=== PATIENT | female | born 1940 | race Caucasian/White ===

== ENCOUNTER 2018-07-07 05:17 | Inpatient (IN) ==
[2018-07-07] MEDS ORDERED: Metoprolol Tartrate 25 MG Tablet PO ONE (05:34)
[2018-07-07] MEDS ORDERED: Chlorhexidine Gluconate 2% 1 Pack (2 Cloths) TOPICAL ONE (05:34)
[2018-07-07] MEDS ORDERED: Sodium Chlor 0.9% Inj 500 ML IV.SIG SCH (06:00)
[2018-07-07] MEDS ORDERED: ceFAZolin 2 GM Premix Inj 2 GM/50 ML PIGGYBACK IV.SIG SCH (06:00)
[2018-07-07] MEDS ORDERED: Bupivacaine Liposomal PF 1.3% Inj 20 ML Vial ONE (06:13)
[2018-07-07] MEDS ORDERED: Propofol Inj 500 MG/50 ML Vial ONE (06:18)
[2018-07-07] MEDS ORDERED: fentaNYL Citrate Inj 100 MCG/2 ML Ampul ONE ×2 (06:18→06:35)
[2018-07-07] MEDS ORDERED: Sodium Chlor 0.9% Inj 0 ML ONE (06:18)
[2018-07-07] MEDS ORDERED: Famotidine PF Inj 20 MG/2 ML Vial ONE (06:19)
[2018-07-07] MEDS ORDERED: Bupivacaine/Dextrose 0.75% Inj 2 ML Ampul ONE (06:19)
[2018-07-07] MEDS ORDERED: Dexmedetomidine Inj 200 MCG/2 ML Vial ONE (06:19)
[2018-07-07] MEDS ORDERED: Ketamine Inj 50 MG/5 ML Syringe IV.PUSH ONE (06:35)
[2018-07-07] MEDS ORDERED: Lidocaine PF 1% Inj 5 ML Syringe OTHER ONE (06:41)
[2018-07-07] MEDS ORDERED: Esmolol Bolus Inj 100 MG/10 ML Vial IV.PUSH ONE (06:41)
[2018-07-07] MEDS ORDERED: Phenylephrine/NS 1000 MCG/10ML Syringe IV.PUSH ONE (06:41)
[2018-07-07] MEDS ORDERED: Aluminum/Magnesium/Simethacone Susp 30 ML UDC PO PRN (06:51)
[2018-07-07] MEDS ORDERED: Post-op Orders (for Pharmacy) OTHER STA (06:51)
[2018-07-07] MEDS ORDERED: Morphine Inj 4 MG/ML Vial IV.PUSH PRN (06:51)
[2018-07-07] MEDS ORDERED: Tranexamic Acid Inj 0 MG in Sodium Chlor 0.9% Inj 100 ML IV.SIG ONE (06:51)
[2018-07-07] MEDS ORDERED: Bisacodyl 10 MG Supp RECTAL PRN (06:51)
[2018-07-07] MEDS ORDERED: SODIUM CHLOR 0.9% IV.SIG SCH ×2 (07:00→10:00)
[2018-07-07] MEDS ORDERED: Sodium Chlor 0.9% Inj 80 ML, Bupivacaine Liposo PF 1.3% Inj 20 ML P-ARTICULR SCH ×2 (07:00)
[2018-07-07] MEDS ORDERED: TRANEXAMIC ACID IV.SIG SCH ×2 (07:00→10:00)
[2018-07-07] MEDS ORDERED: Sugammadex Inj 200 MG/2 ML Vial IV.PUSH ONE (08:52)
--- NOTE | 2018-07-07 09:09 | P.DCO ---
- Physical Therapy Physical Therapy: Gait training Knee: Total knee, Protocol: Right, Gait training, Full weight bearing Right Lower Extremity Weight Bearing: Weight bearing as tolerated Right Lower Extremity Range of Motion: Active ROM (Active, active assisted, passive range of motion. Range of motion goal is 0 degrees extension to 135 degrees of flexion. Range of motion in the operating room was 0 degrees extension to 145 degrees of flexion.) - Nursing Nursing: Dressing changes (To begin postop day 7.) Dressing changes: Daily dressing change (To begin postop day 7.), Coverderm/ Primapore (Do not remove Dermabond Prineo (the tape that is on the wound).) - Certification Need for Home Health services: I have seen patient Anastasia Salmon on 07/07/18. My clinical findings support the need for the requested home health care services because: Need for Home Health Services: Limited ability to care for self, High risk of falls Homebound Certification: I certify that my clinical findings support that this patient is homebound because: Homebound Certification: Post-op weakness, Unsteady gait/balance, Unsafe to leave home unassisted
--- NOTE | 2018-07-07 09:16 | P.OP ---
- Preoperative Diagnosis (1) Primary osteoarthritis of right knee - Postoperative Diagnosis (1) Primary osteoarthritis of right knee Date of procedure: 07/07/18 Procedure: Right total knee arthroplasty using Murali Triathlon prosthesis (uncemented). 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 We will she has not responded to conservative measures including G6, nonsteroidal anti-inflammatory agents, activity modification, exercises, physical therapy and ambulatory aids. Her ambulation tolerance is 2 blocks because of the pain. She has difficulty standing from a seated position. She has medial pain. She has stiffness. Physical findings showed genuine varum with medial laxity and tenderness in the medial compartment. There are palpable osteophytes. X-rays showed an MRI showed advanced for arthritis in the right knee with loss of articular cartilage to [id number], exposed subchondral bone, subchondral sclerosis and osteophytes. Operative findings: There was significant loss of articular cartilage in the medial compartment with osteophytes and subchondral sclerosis. The patellofemoral compartment had degenerative change as well to a significant degree. The bone quality was good. The prosthesis used was a Argyle Triathlon prosthesis. The femur was a size 4, cruciate retaining, uncemented. The tibial baseplate was a size 4 Tritanium with a 9 mm, cruciate retaining, X3 polyethylene spacer. The patella was a size 32 mm asymmetric Tritanium backed. The patient was brought to the clean-air operating suite after administration of a regional anesthetic by adductor canal block. A spinal anesthetic was administered. The position was supine with a small bolster under the hip on the operative side. A pneumatic tourniquet was applied to the upper thigh. The lower extremity was prepped with alcohol, Hibiclens and ChloraPrep and draped in the usual manner with the knee draped free. An appropriate timeout procedure was carried out. An incision was made from about 3 fingerbreadths above the superior medial pole of patella down the tibial tubercle on the medial side. The incision was deepened through the subcutaneous tissue to the retinacular structures which were exposed medially and laterally. A medial retinacular incision was made from the superior medial pole of patella down the tibial tubercle and up into the quadriceps tendon, splitting it longitudinally in the medial one third. The patella was reflected. The infrapatellar fat pad was debulked. The anterior cruciate ligament was excised. Medial and lateral meniscectomies were initiated. Fenestrations were made in the distal femur and proximal tibia for intramedullary referencing guides. The distal femoral cutting guide and jig were assembled for a 5, 8 mm cut. When this was fit into position,the cutting block was stabilized with pins. The jig was removed. The distal femoral cut was completed with the oscillating saw. The sizing guide was positioned in place along Whitesides line and the epicondylar axis and stabilized with pins. The femoral size was determined as noted above. The 4-in-1 cutting block was positioned in place. Anterior and posterior cuts were made followed by posterior and anterior chamfer cuts taking care to prevent injury to ligamentous structures. Osteophytes were trimmed from the distal femur. A bone plug was placed into the fenestration of the distal femur. The proximal tibia was exposed. The medial and lateral meniscectomies were completed. The proximal tibial cutting guide was positioned in place and stabilized with a pin for rotation. The depth of cut was verified with a stylus off the high side. The cutting block was stabilized with pins. The jig was removed. The depth of cut was verified and adjusted appropriately with the use of the spacer block. The proximal tibial cut was made with the oscillating saw taking care to prevent injury to neurovascular and ligamentous structures. Proximal tibial bone was removed. Local anesthetic was administered with Exparel in the posterior capsule. The tibial baseplate trial was positioned in place. After verifying the appropriate size, the base plate trial was positioned in place along with its spacer. The femoral component was impacted into place. The alignment was checked. The tibial baseplate was pinned in place on the tibia. Attention was directed to the patella. The patella drill guide was positioned in place for the appropriate sized patella. Patellar drilling was then carried out. The trial patella was positioned in place. The knee was taken through a range of motion which was easily 0 extension to 140 degrees. The patella trial was removed. The femoral drill holes were made. The femoral trials were removed. The tibial spacer was removed. A bone plug was placed into the proximal tibia. The tibial punch was impacted through the proximal tibial punch guide. This was all removed followed by placement of the tibial drill guide. The tibial drill holes were made. The guide was removed. The cut ends of bone were cleaned with pulse lavage. The tibial baseplate was impacted into place and seated appropriately. The spacer was inserted. The the femoral component was impacted into place and seated appropriately. The patella component was seated with the patellar vice and tightened appropriately. The knee was taken through a range of motion which was comparable to the previous range of motion with excellent stability in flexion and extension and appropriate patellofemoral tracking. The remainder of the Exparel was injected throughout the knee as a local anesthetic. Drains were brought out the superior lateral aspect of the suprapatellar pouch. Wound closure commenced using 0 Vicryl interrupted [id number] sutures for the capsular and fascial structures, 2-0 Vicryl interrupted simple sutures with buried knots for the subcutaneous tissues and 4-0 Monocryl, continuous subcuticular closure for the skin. The wound was dressed with Dermabond Prineo followed by an Optifoam dressing. Sterile soft roll with a cooling pad and Pepe bandage from the base of the toes to mid thigh were applied. Patient was transferred from the operating room to the recovery room in satisfactory condition having tolerated procedure well. Counts were correct. Specimens: None. Estimated blood loss: 150 milliliters.
[2018-07-07] MEDS: Senna/Docusate Sodium 8.6/50 MG Tablet PO SCH ×2 (10:02→21:48)
--- NOTE | 2018-07-07 10:19 | XR ---
EXAM DATE: 07/07/2018 6:49 AM EDT AGE/SEX: 78 years / Female INDICATIONS: Post op right total knee replacement. CLINICAL DATA: This is the patient's initial encounter. Patient reports that signs and symptoms have been present for 1 day and indicates a pain score of Nonresponsive. MEDICAL/SURGICAL HISTORY: Non-responsive. Non-responsive. COMPARISON: POI, CT KNEE W/O CONTRAST, RIGHT, 02/11/2018. . FINDINGS: A total knee arthroplasty is noted. The tibial and femoral components appear well seated. There is a small amount of subcutaneous air around the knee. No fracture or dislocation. Surgical drain is noted anteriorly. CONCLUSION: Postoperative changes. Electronically signed by: Dileep Zarco MD 07/07/2018 10:17 AM EDT
[2018-07-07] MEDS: Ketorolac Inj 30 MG/ML (IVP) Vial IV.PUSH SCH ×2 (10:46→16:15)
--- NOTE | 2018-07-07 13:46 | P.CON ---
History of Present Illness Requesting Physician: Mickey Correa Reason for Consult: Medical management and postop care Primary Care Provider: West Willingham MD Chief Complaint: Right knee pain History of Present Illness: This is a 78-year-old female with a history of seasonal allergies, hyperglycemia and right knee pain from osteoarthritis. She underwent elective arthroplasty today by Dr. NURY Correa who requested consultation to evaluate and manage multiple medical conditions. Patient at this time has no complaints she received nerve block. States she was having right knee pain affecting her activities of daily living. Preop eval showed she had hyperglycemia 170 and microscopic hematuria RBC of 8. No UTI symptoms. Review of Systems All other systems reviewed negative except as stated in HPI PMFSH - History History Provided By: Patient - Medical History Medical History: Medical History (Last Reviewed 07/07/18 @ 16:00 by West Osman MD) Arthritis Hx of cyst of breast Hx of sinusitis Irregular heart beats - Surgical History Surgical History: Surgical History (Last Reviewed 07/07/18 @ 16:00 by West Osman MD) H/O colonoscopy History of esophagogastroduodenoscopy (EGD) Hx of arthroscopy of right knee Hx of cataract surgery - Family History Family History: Family History (Last Updated 07/07/18 @ 16:00 by West Osman MD) Other Family history of diabetes mellitus - Social History I have reviewed the patient's Social History: Yes - Tobacco History Second Hand Smoke Exposure: No Tobacco Use In Past 30 Days: No Smoking Status: Never smoker - Alcohol History How Often Do You Have a Drink Containing Alcohol: Never - Substance Use History Substance History: No History of Abuse - Travel History Recent Travel in the [place] Within the Last 8 Weeks: Yes Recent Travel Out of the Country Within the Last 8 Weeks: No Medications and Allergies Active Medications: Active Medications Acetaminophen (Tylenol) 650 mg PO Q6H PRN PRN Reason: Pain Less Than 3 On Scale Hydrocodone Bitart/Acetaminophen ([place] 7.5/325) 1 tab PO Q4H PRN PRN Reason: PAIN SCALE 4 TO 6 MODERATE Hydrocodone Bitart/Acetaminophen ([place] 7.5/325) 2 tab PO Q6H PRN PRN Reason: PAIN SCALE 7 TO 10 SEVERE Al Hydrox/Mg Hydrox/Simethicone (Mag-Al Plus Susp Liq) 30 ml PO Q6H PRN PRN Reason: INDIGESTION Al Hydroxide/Mg Hydroxide (Milk Of Efrain Liq) 30 ml PO BID PRN PRN Reason: Mild Constipation Aspirin (Aspirin Chew) 81 mg PO BID [facility] Last Admin: 07/07/18 10:02 Dose: Not Given Bisacodyl (Dulcolax Supp) 10 mg RECTAL DAILY PRN PRN Reason: SEVERE CONSITIPATION Calcium/Vitamin D (Oscal With D 250/125 Mg) 2 tab PO DAILY [facility] Sodium Chloride 80 ml/ (Bupivacaine Liposome 20 ml) 0 ml P-ARTICULR ONCE [facility] Stop: 07/07/18 14:00 Last Admin: 07/07/18 07:30 Dose: 100 bag Diphenhydramine HCl (Benadryl) 25 mg PO Q6H PRN PRN Reason: ITCHING Estradiol (Estrace 0.01% Vag Cream) 0 appful VAGINAL Q7D [facility] Fluticasone Propionate (Flonase Nasal [place]) 1 spray EACH NARE DAILY [facility] Lactated Ringer's (Lr 1000 Ml Inj) 1,000 mls @ 30 mls/hr IV.SIG .Q24H [facility] Stop: 07/08/18 05:44 Last Admin: 07/07/18 05:52 Dose: 30 mls/hr Sodium Chloride (Ns Inj) 500 mls @ 30 mls/hr IV.SIG .Q10H [facility] Cefazolin Sodium/Dextrose (Ancef 2 Gm Premix Inj) 2 gm in 50 mls @ 100 mls/hr IV.SIG INDUCTION BRAZER [facility] Stop: 07/11/18 05:59 Last Infusion: 07/07/18 07:31 Dose: Infused Tranexamic Acid 655 mg/ Sodium (Chloride) 106.55 mls @ 200 mls/hr IV.SIG ONCE [facility] Stop: 07/07/18 14:00 Last Infusion: 07/07/18 07:31 Dose: Infused Tranexamic Acid 655 mg/ Sodium (Chloride) 106.55 mls @ 200 mls/hr IV.SIG ONCE [facility] Stop: 07/07/18 16:00 Last Admin: 07/07/18 10:03 Dose: 200 mls/hr Cefazolin Sodium 1,000 mg/ (Sodium Chloride) 100 mls @ 200 mls/hr IV.SIG Q6H [facility] Stop: 07/08/18 01:29 Lactated Ringer's (Lr 1000 Ml Inj) 1,000 mls @ 80 mls/hr IV.CONT .[id number] [facility] Last Admin: 07/07/18 10:02 Dose: 80 mls/hr Ketorolac Tromethamine (Toradol Inj) 15 mg IV.PUSH Q6H [facility] Stop: 07/09/18 04:01 Last Admin: 07/07/18 10:46 Dose: 15 mg Lactulose (Lactulose Liq) 30 ml PO DAILY PRN PRN Reason: SEVERE CONSITIPATION Miscellaneous Information (Mis Nursing Information) 0 each OTHER UNSCH PRN PRN Reason: SEE LABEL COMMENTS Stop: 07/08/18 09:23 Morphine Sulfate (Morphine Inj) 2 mg IV.PUSH Q3H PRN PRN Reason: BREAKTHROUGH PAIN Ondansetron HCl (Zofran Odt) 4 mg PO Q6H PRN PRN Reason: NAUSEA OR VOMITING Patient Own Medication: Restasis (Cyclosporine) 0.05 % Ophthalmic Emulsion 0 each EACH EYE Q12H [facility] Senna/Docusate Sodium (Stacie-Colace) 1 tab PO BID [facility] Last Admin: 07/07/18 10:02 Dose: Not Given Sennosides (Senokot) 17.2 mg PO BID PRN PRN Reason: Moderate Constipation Sodium Chloride (Ns Flush) 2 ml IV.FLUSH BID [facility] Sodium Chloride (Ns Flush) 2 ml IV.FLUSH PRN PRN PRN Reason: FLUSH AFTER USING IV ACCESS Zolpidem Tartrate (Ambien) 5 mg PO HS PRN PRN Reason: INSOMNIA Allergies Allergy/AdvReac Type Severity Reaction Status Date / Time clavulanic acid AdvReac Irritation Verified 06/18/18 14:39 [From Augmentin] metformin AdvReac Nausea Verified 06/18/18 14:39 Home Medications Medication Instructions Recorded Confirmed Type calcium carbonate-vitamin D3 1 tab PO DAILY 06/18/18 07/07/18 History [Calcium with Vitamin D] cyclosporine [Restasis] 1 drp OPHTHALMIC (EYE) Q12H 06/18/18 07/07/18 History fluticasone [Flonase Allergy 1 spray INTRANASAL DAILY 06/18/18 07/07/18 History Relief] meloxicam [Mobic] 15 mg PO DAILY 06/18/18 07/07/18 History estradiol 1 g VAGINAL QWEEK 07/07/18 07/07/18 History Physical Exam Vital signs: Vital Signs 07/07/18 05:56 07/07/18 09:24 07/07/18 09:45 Temperature 98.1 F 97.4 F L Pulse Rate 86 96 H 96 H Respiratory Rate 18 20 17 Blood Pressure 144/71 H 149/70 H 134/62 Pulse Oximetry 99 100 99 07/07/18 10:00 07/07/18 10:15 07/07/18 10:30 Temperature Pulse Rate 95 H 90 92 H Respiratory Rate 17 14 16 Blood Pressure 143/68 H 160/71 H 154/69 H Pulse Oximetry 100 98 99 07/07/18 11:00 07/07/18 12:00 Temperature 97.6 F 97.6 F Pulse Rate 88 89 Respiratory Rate 18 18 Blood Pressure 142/64 H 142/66 H Pulse Oximetry 99 93 L Intake & Output 07/06/18 07/07/18 07/07/18 18:59 06:59 18:59 Intake Total 3799.55 / 3799.55 Output Total 1160 / 1160 Balance 2639.55 / 2639.55 Weight 65.5 kg Intake: IV 156.55 / 156.55 Cyklokapron Inj 655 MG In NS 106.55 / 106.55 Inj 100 ML @ 200 mls/hr IV.SIG ONCE [facility] Rx#:[id number] Ancef 2 GM Premix Inj 2 gm In 50 / 50 50 ml @ 100 mls/hr IV.SIG INDUCTION BRAZER [facility] Rx#:[id number] Anesthesia Amount 3643 / 3643 Output: Estimated Blood Loss 150 / 150 Urine Amount (Catheter) 1000 / 1000 Straight 1000 / 1000 Wound Drainage # 1 Right Knee Hemovac Other: Weight On Admission 65.5 kg Narrative: GENERAL: Well-developed, well-nourished in no distress SKIN: Warm and dry. HEAD: Atraumatic. Normocephalic. EYES: Pupils equal and round. No scleral icterus. No injection or drainage. ENT: No nasal bleeding or discharge. Mucous membranes pink and moist. NECK: Trachea midline. No JVD. CARDIOVASCULAR: Regular rate and rhythm. RESPIRATORY: No accessory muscle use. Clear to auscultation. Breath sounds equal bilaterally. GASTROINTESTINAL: Abdomen soft, non-tender, nondistended. MUSCULOSKELETAL: Right lower extremity with dry thick bandage with Hemovac in place NEUROLOGICAL: Awake and alert. No obvious cranial nerve deficits. Motor grossly within normal limits. Five out of 5 muscle strength in the arms and legs. Normal speech. PSYCHIATRIC: Appropriate mood and affect; insight and judgment normal. - Urinary Catheter Management Straight Cath placed during this visit: yes, but has since been removed by the nurse Reason for continuing: Not indwelling catheter Insertion date: 07/07/18 Removal date: 07/07/18 Removal time: 10:55 Assessment and Plan - Plan This is a 78-year-old female with a history of seasonal allergies, hyperglycemia and right knee pain from osteoarthritis. She underwent elective arthroplasty by Dr. NURY Correa who requested consultation to evaluate and manage multiple medical conditions. Right knee osteoarthritis status post arthroplasty. Stable continue postoperative care with physical therapy, wound care, DVT prophylaxis with aspirin and SCD and pain management with Lortab. Counseled regarding narcotics. Incentive spirometry. Hyperglycemia 170. Obtain fasting glucose in the Microscopic hematuria RBC of 8. No UTI symptoms. Outpatient follow-up Discharge Planning: Per orthopedic surgery
[2018-07-07] MEDS ORDERED: Zolpidem Tartrate 5 MG Tablet PO PRN (21:00)
[2018-07-07] MEDS ORDERED: RESTASIS 0.05% EACH EYE SCH (21:00)
[2018-07-08 05:54] LABS: Hematocrit 29.5 % (35.0-46.0); Hemoglobin 9.9 gm/dL (11.6-15.3)
[2018-07-08 06:27] LABS: Calcium 7.5 mg/dL (8.5-10.1); Carbon Dioxide 26.1 meq/L (21.0-32.0); Magnesium 2.1 mg/dL (1.5-2.5); Potassium 4.1 meq/L (3.5-5.1)
--- NOTE | 2018-07-08 07:36 | P.PNOP ---
Subjective Interval history: Postop day #1 She is doing well. She does have some pain but not much. She indicates that she had some vertigo when she was walking; but this has improved. Physical therapy reports that the ambulation distance was 38 feet. The range of motion was 0 degrees of extension to 75 degrees of flexion. Physical Exam Vital signs: Vital Signs 07/07/18 09:24 07/07/18 09:45 07/07/18 10:00 Temperature 97.4 F L Pulse Rate 96 H 96 H 95 H Respiratory Rate 20 17 17 Blood Pressure 149/70 H 134/62 143/68 H Pulse Oximetry 100 99 100 07/07/18 10:15 07/07/18 10:30 07/07/18 11:00 Temperature 97.6 F Pulse Rate 90 92 H 88 Respiratory Rate 14 16 18 Blood Pressure 160/71 H 154/69 H 142/64 H Pulse Oximetry 98 99 99 07/07/18 12:00 07/07/18 15:58 07/07/18 16:00 Temperature 97.6 F 97.7 F Pulse Rate 89 86 Respiratory Rate 18 18 Blood Pressure 142/66 H 142/62 H Pulse Oximetry 93 L 95 95 07/07/18 20:00 07/08/18 00:00 07/08/18 04:00 Temperature 98.0 F 98.2 F 98.4 F Pulse Rate 94 H 97 H 86 Respiratory Rate 17 18 17 Blood Pressure 122/51 L 125/60 114/56 L Pulse Oximetry 96 94 L 94 L Intake & Output 07/07/18 07/08/18 07/08/18 18:59 06:59 18:59 Intake Total 4859.55 / 4859.55 1500 / 1500 Output Total 1340 / 1340 120 / 120 Balance 3519.55 / 3519.55 1500 / 1500 -120 / -120 Weight 76.3 kg Intake: IV 256.55 / 256.55 1100 / 1100 LR 1000 mL Inj 1,000 ML @ 80 1000 / 1000 mls/hr IV.CONT .[id number] [facility] Rx# :[id number] Cyklokapron Inj 655 MG In NS 106.55 / 106.55 Inj 100 ML @ 200 mls/hr IV.SIG ONCE [facility] Rx#:[id number] Ancef 2 GM Premix Inj 2 gm In 50 / 50 50 ml @ 100 mls/hr IV.SIG CAT SKINNER [facility] Rx#:[id number] Ancef Inj 1,000 MG In NS Inj 100 / 100 100 / 100 100 ML @ 200 mls/hr IV.SIG Q6H [facility] Rx#:[id number] Oral 960 / 960 400 / 400 Anesthesia Amount 3643 / 3643 Output: Estimated Blood Loss 150 / 150 Urine Amount (Catheter) 1000 / 1000 Straight 1000 / 1000 Wound Drainage 190 / 190 120 / 120 # 1 Right Knee Hemovac 190 / 190 120 / 120 Other: # Voids 3 3 # Bowel Movements 0 Narrative: She is resting comfortably, supine in bed. The dressing is dry and intact. Her neurovascular status is intact. - Urinary Catheter Management Straight Cath placed during this visit: yes, but has since been removed by the nurse Reason for continuing: Not indwelling catheter Insertion date: 07/07/18 Removal date: 07/07/18 Removal time: 10:55 Results - Labs CBC & Chem 7: 07/08/18 05:30 07/08/18 05:30 Laboratory Results - last 24 hr 07/08/18 07/08/18 05:30 05:30 Hgb 9.9 L Hct 29.5 L Sodium 144 Potassium 4.1 Chloride 111 H Carbon Dioxide 26.1 Anion Gap 7 BUN 14 Creatinine 0.69 Estimated GFR 82 L Random Glucose 106 Calcium 7.5 L Magnesium 2.1 - Imaging Impressions Knee X-Ray 07/07/18 06:49 CONCLUSION: Postoperative changes. - Procedures Right total knee arthroplasty using Murali Triathlon prosthesis (uncemented) on 07/07/2018 Assessment and Plan - Ortho Post Op Day # 1 - Problem List (1) Status post total right knee replacement not using cement Code(s): Z96.651 - Presence of right artificial knee joint Status: Acute Plan: Continue postop care and PT. - Assessment and Plan Condition: Good. Orthopedically stable. DVT prophylaxis: TEDs, aspirin, sequentials. Discharge plans: Home with home health care. An appointment was scheduled through the office. Prescriptions: [place] 7.5/325; Patient is having significant pain caused by a right total knee which will last more than 3 days. Trial of Tylenol has not helped. I believe that it is medically necessary to treat patients pain because it is affecting patients ability to participate in postoperative rehabilitation and perform activities of daily living in a comfortable and efficient manner.
--- NOTE | 2018-07-08 08:04 | P.DS ---
Date of admission: 07/07/18 05:17 Primary care physician: West Willingham MD Attending physician on discharge: Mickey Correa Anticipated date of discharge: 07/09/18 Brief History from admission: This 78-year-old woman has had long-standing right knee pain nonresponsive to conservative measures including anti-inflammatory agents, analgesics, activity modification and ambulatory aids. This interfered with her activities of daily living and her ambulation which was limited. Physical findings showed genu varum with medial laxity, crepitation, osteophytes and tenderness. X-rays showed loss of articular cartilage in the medial compartment to [id number], subchondral sclerosis, tricompartmental osteophytes. DS: Diagnosis - Discharge Diagnosis (1) Status post total right knee replacement not using cement Status: Acute Diagnosis: Principal (2) Primary osteoarthritis of right knee Status: Chronic Diagnosis: Principal DS: Medications - Discharge Medications Prescriptions: hydrocodone-acetaminophen 1 tab PO Q4H PRN 7 Days #42 tab PRN Reason: Pain Scale 1 To 10 DS: Summary Hospital Course: The patient was admitted as noted above. The above noted operative procedure was carried out that day. Preoperatively prophylactic antibiotics were administered Ancef according to protocol. These were continued postoperatively. The patient also received tranexamic acid to help with hemostasis according to protocol. In the postanesthesia care unit mechanical methods of DVT prophylaxis were initiated in the form of KARLY stockings and sequentials. Physical therapy was initiated on the day of surgery. On postoperative day #1 physical therapy continued. DVT prophylaxis with aspirin 81 mg was initiated at this time. The patient continued physical therapy throughout the hospitalization. The distance walked and range of motion improved throughout the hospitalization. The patient was discharged on postoperative day 2 with the disposition being to home with home health care. An appointment for follow-up was made prior to admission. - Time Spent with Patient Total time spent providing and/or coordinating discharge services: Less than 30 minutes - Quality: VTE Deep Vein Thrombosis/Pulmonary Embolism Present on Admission: No Exam Vital signs: Vital Signs 07/07/18 09:24 07/07/18 09:45 07/07/18 10:00 Temperature 97.4 F L Pulse Rate 96 H 96 H 95 H Respiratory Rate 20 17 17 Blood Pressure 149/70 H 134/62 143/68 H Pulse Oximetry 100 99 100 07/07/18 10:15 07/07/18 10:30 07/07/18 11:00 Temperature 97.6 F Pulse Rate 90 92 H 88 Respiratory Rate 14 16 18 Blood Pressure 160/71 H 154/69 H 142/64 H Pulse Oximetry 98 99 99 07/07/18 12:00 07/07/18 15:58 07/07/18 16:00 Temperature 97.6 F 97.7 F Pulse Rate 89 86 Respiratory Rate 18 18 Blood Pressure 142/66 H 142/62 H Pulse Oximetry 93 L 95 95 07/07/18 20:00 07/08/18 00:00 07/08/18 04:00 Temperature 98.0 F 98.2 F 98.4 F Pulse Rate 94 H 97 H 86 Respiratory Rate 17 18 17 Blood Pressure 122/51 L 125/60 114/56 L Pulse Oximetry 96 94 L 94 L Intake & Output 07/07/18 07/08/18 07/08/18 18:59 06:59 18:59 Intake Total 4859.55 / 4859.55 1500 / 1500 Output Total 1340 / 1340 120 / 120 Balance 3519.55 / 3519.55 1500 / 1500 -120 / -120 Weight 76.3 kg Intake: IV 256.55 / 256.55 1100 / 1100 LR 1000 mL Inj 1,000 ML @ 80 1000 / 1000 mls/hr IV.CONT .[id number] LEANA Rx# :[id number] Cyklokapron Inj 655 MG In NS 106.55 / 106.55 Inj 100 ML @ 200 mls/hr IV.SIG ONCE LEANA Rx#:[id number] Ancef 2 GM Premix Inj 2 gm In 50 / 50 50 ml @ 100 mls/hr IV.SIG DIRECTOR CASE LEANA Rx#:[id number] Ancef Inj 1,000 MG In NS Inj 100 / 100 100 / 100 100 ML @ 200 mls/hr IV.SIG Q6H LEANA Rx#:[id number] Oral 960 / 960 400 / 400 Anesthesia Amount 3643 / 3643 Output: Estimated Blood Loss 150 / 150 Urine Amount (Catheter) 1000 / 1000 Straight 1000 / 1000 Wound Drainage 190 / 190 120 / 120 # 1 Right Knee Hemovac 190 / 190 120 / 120 Other: # Voids 3 3 # Bowel Movements 0 Narrative: She is resting comfortably, supine in bed. The neurovascular status is intact. The dressing is dry and intact. Results Procedures completed during hospitalization: Right total knee arthroplasty using [place] Triathlon prosthesis (uncemented) on 07/07/2018 Pending studies at discharge: Knee X-Ray 07/07/18 06:49 CONCLUSION: Postoperative changes. The position and alignment of the right total knee appear to be appropriate. Labs on day of discharge: Labs from last 24 hours 07/08/18 07/08/18 05:30 05:30 Hgb 9.9 L Hct 29.5 L Sodium 144 Potassium 4.1 Chloride 111 H Carbon Dioxide 26.1 Anion Gap 7 BUN 14 Creatinine 0.69 Estimated GFR 82 L Random Glucose 106 Calcium 7.5 L Magnesium 2.1 - Impressions ITS Impressions Knee X-Ray 07/07/18 06:49 CONCLUSION: Postoperative changes. Discharge Plan - Discharge Disposition Patient Disposition: W/Home Health Service - Discharge Condition Condition: Stable - Discharge Order Discharge Orders: Discharge Order (Routine); Ordered 07/09/18 Ordered By: Mickey Correa Hospitalist Clear for Discharge (Routine); Ordered 07/08/18 Ordered By: West Osman - Discharge Details Anticipated Discharge Date: 07/09/18 - Physicians Team Primary Care Provider: West Willingham Attending Provider: Mickey Correa Other Providers: West Osman MD - Rxs /Orders / Referrals /Forms Prescriptions: New aspirin 81 mg Tablet,Chewable 81 mg PO BID RF: 0 hydrocodone-acetaminophen 5-325 mg Tablet 1 tab PO Q4H PRN (Reason: Pain Scale 1 To 10) 7 Days Qty: 42 RF: 0 Continue calcium carbonate-vitamin D3 [Calcium with Vitamin D] 600 mg(1,500mg) -400 unit Tablet 1 tab PO DAILY cyclosporine [Restasis] 0.05 % Dropperette 1 drp OPHTHALMIC (EYE) Q12H estradiol 0.01 % (0.1 mg/gram) Cream 1 g VAGINAL QWEEK fluticasone [Flonase Allergy Relief] 50 mcg/actuation [place],Suspension 1 spray INTRANASAL DAILY meloxicam [Mobic] 15 mg Tablet 15 mg PO DAILY Referrals: Mickey Correa MD [Physician] - See Instructions West Willingham MD [Primary Care Provider] - See Instructions (3 days) - Discharge Instructions Patient Printed Instructions: How to Use an Incentive Spirometer (DC), Narcotic Pain Management (DC), Fall Prevention (DC), Knee Replacement (DC) Additional Instructions: KEEP OR MAKE FOLLOW UP APPOINTMENTS DIRECTED. TAKE MEDICATIONS INSTRUCTED. CONTINUE TO WEAR KARLY HOSE AFTER DISCHARGE INSTRUCTED - Post Discharge Care Plan Care Plan Goals: Discharge Care Plan Goals for Total Knee Replacement You have undergone knee replacement surgery. Your doctor replaced your painful joint with an artificial joint to relieve pain and restore movement. Here are some goals to help you heal well. Directions to Meet your Goals: 1. Activity & Exercises: * Take pain medicine as directed by your doctor. * Sit in chairs with arms. The arms make it easier for you to stand up or sit down. * Dont sit for more than 30 to 45 minutes at one time. * Nap if you are tired, but dont stay in bed all day. * Sleep with a pillow under your ankle, not your knee. Be sure to change the position of your leg during the night. * Wear the support stockings you were given in the hospital as directed by your surgeon. 2. Prevent Falls/Injury: The reyes to successful recovery is movement with walking and exercising your knee as directed by your doctor. * Arrange your household to keep the items you need handy. Keep everything else out of the way. * Remove items that may cause you to fall, such as throw rugs and electrical cords. * Use nonslip bath mats, grab bars, an elevated toilet seat, and a shower chair in your bathroom * Sit on a shower stool or chair when you shower to keep from falling. * Until your balance, flexibility, and strength improve, use a cane, crutches, a walker, handrails, or someone to help you. * Keep your hands free by using a backpack, bret pack, apron, or pockets to carry things * Walk up and down stairs with support. Try one step at a time. Use the railing if possible. * Dont drive until your doctor says its OK. * Dont drive while you are taking opioid pain medicine. 3. Precautions: * Prevent infection. Any infection will need to be treated immediately. Call your doctor right away if you think you might have an infection. * Tell your dentist that you have an artificial joint and take antibiotics as prescribed before any dental work. * Tell all your healthcare providers about your artificial joint before any medical procedure. * Maintain a healthy weight. Get help to lose any extra pounds. Added body weight puts stress on the knee. * Your medications may include blood-thinning medicine to prevent blood clots or antibiotics to prevent infection-prevent any falls or cuts 4. Incision Care: * Prevent infection by washing your hands often. If an infection occurs, it will need to be treated right away. * Call your doctor right away if you think you may have an infection. Symptoms include a fever or an incision that leaks white, green, or yellow fluid. * Don't soak your incision in water until your doctor says its OK. This means no hot tubs, bathtubs, or swimming pools. * Follow your doctor's instructions for changing the dressing. * Dont rub the incision, or apply creams or lotions to it. * If you notice any redness or drainage around the bandage site, contact your surgeon's office immediately. 5. Follow-Up: Do Not miss your follow-up appointment. Keep up with all your appointments and yearly check ups When to call your doctor: Call your doctor right away if you have: Fever of 100.4F (38C) or higher, or as directed by your doctor Shaking chills Stiffness, or inability to move the knee Increased swelling in your leg Increased redness, tenderness, or swelling in or around the knee incision Drainage from the knee incision Increased knee pain Call 911: Call 911 right away if you have: Chest pain Shortness of breath Any pain or tenderness in your calf
--- NOTE | 2018-07-08 08:20 | P.PN ---
Subjective Interval history: Follow-up knee arthroplasty. States she is doing okay. Worried about taking narcotics patient counseled. States she can take half of the [place] pill if the entire pelvis making her drowsy Physical Exam Vital signs: Vital Signs 07/07/18 09:24 07/07/18 09:45 07/07/18 10:00 Temperature 97.4 F L Pulse Rate 96 H 96 H 95 H Respiratory Rate 20 17 17 Blood Pressure 149/70 H 134/62 143/68 H Pulse Oximetry 100 99 100 07/07/18 10:15 07/07/18 10:30 07/07/18 11:00 Temperature 97.6 F Pulse Rate 90 92 H 88 Respiratory Rate 14 16 18 Blood Pressure 160/71 H 154/69 H 142/64 H Pulse Oximetry 98 99 99 07/07/18 12:00 07/07/18 15:58 07/07/18 16:00 Temperature 97.6 F 97.7 F Pulse Rate 89 86 Respiratory Rate 18 18 Blood Pressure 142/66 H 142/62 H Pulse Oximetry 93 L 95 95 07/07/18 20:00 07/08/18 00:00 07/08/18 04:00 Temperature 98.0 F 98.2 F 98.4 F Pulse Rate 94 H 97 H 86 Respiratory Rate 17 18 17 Blood Pressure 122/51 L 125/60 114/56 L Pulse Oximetry 96 94 L 94 L Intake & Output 07/07/18 07/08/18 07/08/18 18:59 06:59 18:59 Intake Total 4859.55 / 4859.55 1500 / 1500 Output Total 1340 / 1340 120 / 120 Balance 3519.55 / 3519.55 1500 / 1500 -120 / -120 Weight 76.3 kg Intake: IV 256.55 / 256.55 1100 / 1100 LR 1000 mL Inj 1,000 ML @ 80 1000 / 1000 mls/hr IV.CONT .[id number] LEANA Rx# :[id number] Cyklokapron Inj 655 MG In NS 106.55 / 106.55 Inj 100 ML @ 200 mls/hr IV.SIG ONCE LEANA Rx#:[id number] Ancef 2 GM Premix Inj 2 gm In 50 / 50 50 ml @ 100 mls/hr IV.SIG AVIATION MAINTENANCE TECHNICIAN LEANA Rx#:[id number] Ancef Inj 1,000 MG In NS Inj 100 / 100 100 / 100 100 ML @ 200 mls/hr IV.SIG Q6H LEANA Rx#:[id number] Oral 960 / 960 400 / 400 Anesthesia Amount 3643 / 3643 Output: Estimated Blood Loss 150 / 150 Urine Amount (Catheter) 1000 / 1000 Straight 1000 / 1000 Wound Drainage 190 / 190 120 / 120 # 1 Right Knee Hemovac 190 / 190 120 / 120 Other: # Voids 3 3 # Bowel Movements 0 Narrative: GENERAL: Well-developed, well-nourished in no distress SKIN: Warm and dry. CARDIOVASCULAR: Regular rate and rhythm. RESPIRATORY: No accessory muscle use. Clear to auscultation. Breath sounds equal bilaterally. GASTROINTESTINAL: Abdomen soft, non-tender, nondistended. MUSCULOSKELETAL: Right lower extremity with dry thick bandage with Hemovac in place NEUROLOGICAL: Awake and alert. No obvious cranial nerve deficits. Motor grossly within normal limits. Five out of 5 muscle strength in the arms and legs. Normal speech. - Urinary Catheter Management Straight Cath placed during this visit: yes, but has since been removed by the nurse Reason for continuing: Not indwelling catheter Insertion date: 07/07/18 Removal date: 07/07/18 Removal time: 10:55 Results - Labs CBC & Chem 7: 07/08/18 05:30 07/08/18 05:30 Laboratory Results - last 24 hr 07/08/18 07/08/18 05:30 05:30 Hgb 9.9 L Hct 29.5 L Sodium 144 Potassium 4.1 Chloride 111 H Carbon Dioxide 26.1 Anion Gap 7 BUN 14 Creatinine 0.69 Estimated GFR 82 L Random Glucose 106 Calcium 7.5 L Magnesium 2.1 - Imaging Impressions Knee X-Ray 07/07/18 06:49 CONCLUSION: Postoperative changes. - Procedures Right total knee arthroplasty using [place] Triathlon prosthesis (uncemented) on 07/07/2018 Assessment and Plan - Plan This is a 78-year-old female with a history of seasonal allergies, hyperglycemia and right knee pain from osteoarthritis. She underwent elective arthroplasty by Dr. NURY Correa who requested consultation to evaluate and manage multiple medical conditions. Right knee osteoarthritis status post arthroplasty. Stable continue postoperative care with physical therapy, wound care, DVT prophylaxis with aspirin and SCD and pain management with Lortab. Counseled regarding narcotics. Incentive spirometry. Hyperglycemia 170. Fasting glucose 106 Microscopic hematuria RBC of 8. No UTI symptoms. Outpatient follow-up Anemia secondary to acute blood loss. Hemodynamically stable. Continue to monitor Discharge Planning: Per orthopedic surgery
[2018-07-08] MEDS: Calcium/Vitamin D 250/125 MG Tablet PO SCH ×2 (10:19→10:25)
[2018-07-08] MEDS: Ketorolac Inj 30 MG/ML (IVP) Vial IV.PUSH SCH ×5 (10:19→23:08)
[2018-07-08] MEDS: Senna/Docusate Sodium 8.6/50 MG Tablet PO SCH ×2 (10:26→21:15)
[2018-07-08] MEDS: Acetaminophen 325 MG Tablet PO PRN (18:58)
[2018-07-09] MEDS: Acetaminophen 325 MG Tablet PO PRN ×2 (00:45→08:47)
[2018-07-09] MEDS: Ketorolac Inj 30 MG/ML (IVP) Vial IV.PUSH SCH (04:36)
[2018-07-09 06:28] LABS: Hematocrit 32.7 % (35.0-46.0); Hemoglobin 11.2 gm/dL (11.6-15.3)
--- NOTE | 2018-07-09 07:44 | P.PNOP ---
Subjective Interval history: Postop day #2 She is doing relatively well. She was somewhat panicked because of a reaction to medication but is doing better. She has been up walking. She has less pain but still does have some pain. The [place] 7.5 is a little bit too much for her. Physical therapy reports that the ambulation distance was 60 feet. The range of motion was 0 degrees of extension to 78 degrees of flexion. Physical Exam Vital signs: Vital Signs 07/08/18 08:00 07/08/18 12:00 07/08/18 16:00 Temperature 98.3 F 98.6 F 97.8 F Pulse Rate 83 80 83 Respiratory Rate 16 16 16 Blood Pressure 132/60 119/57 L 142/66 H Pulse Oximetry 92 L 95 98 07/08/18 20:00 07/09/18 00:00 Temperature 98.4 F 98.4 F Pulse Rate 78 89 Respiratory Rate 16 16 Blood Pressure 124/68 165/75 H Pulse Oximetry 94 L 96 Intake & Output 07/08/18 07/09/18 07/09/18 18:59 06:59 18:59 Output Total 120 / 120 Balance -120 / -120 Weight 65.5 kg Output: Wound Drainage 120 / 120 # 1 Right Knee Hemovac 120 / 120 Other: # Voids 2 4 Date of Last Bowel Movement 07/09/18 # Bowel Movements 1 Narrative: She is resting comfortably, supine in bed. The dressing is dry and intact. The neurovascular status is intact. - Urinary Catheter Management Straight Cath placed during this visit: yes, but has since been removed by the nurse Reason for continuing: Not indwelling catheter Insertion date: 07/07/18 Removal date: 07/07/18 Removal time: 10:55 Results - Labs CBC & Chem 7: 07/09/18 05:46 07/08/18 05:30 Laboratory Results - last 24 hr 07/09/18 05:46 Hgb 11.2 L Hct 32.7 L - Procedures Right total knee arthroplasty using [place] Triathlon prosthesis (uncemented) on 07/07/2018 Assessment and Plan - Ortho Post Op Day # 2 - Problem List (1) Status post total right knee replacement not using cement Code(s): Z96.651 - Presence of right artificial knee joint Status: Acute Plan: We have discussed her operative range of motion and functional range of motion in relation to her range of motion goals (0-135 degrees). (2) Primary osteoarthritis of right knee Code(s): M17.11 - Unilateral primary osteoarthritis, right knee Status: Chronic - Assessment and Plan Condition: Good. Orthopedically stable. DVT prophylaxis: TEDs, aspirin, sequentials. Discharge plans: Home with home health care. An appointment was scheduled through the office. Her medications will be adjusted. Prescriptions: [place] 5/325; Patient is having significant pain caused by a right total knee which will last more than 3 days. Trial of Tylenol has not helped. I believe that it is medically necessary to treat patients pain because it is affecting patients ability to participate in postoperative rehabilitation and perform activities of daily living in a comfortable and efficient manner.
[2018-07-09 08:09] VITALS: BP 146/65; PULSE 81; RESP 18; TEMP 98.8; O2SAT 97
--- NOTE | 2018-07-09 08:34 | P.PN ---
Subjective Interval history: Follow-up anemia. Hemoglobin up to 11.2 Physical Exam Vital signs: Vital Signs 07/08/18 12:00 07/08/18 16:00 07/08/18 20:00 Temperature 98.6 F 97.8 F 98.4 F Pulse Rate 80 83 78 Respiratory Rate 16 16 16 Blood Pressure 119/57 L 142/66 H 124/68 Pulse Oximetry 95 98 94 L 07/09/18 00:00 07/09/18 08:00 Temperature 98.4 F 98.8 F Pulse Rate 89 81 Respiratory Rate 16 18 Blood Pressure 165/75 H 146/65 H Pulse Oximetry 96 97 Intake & Output 07/08/18 07/09/18 07/09/18 18:59 06:59 18:59 Output Total 120 / 120 Balance -120 / -120 Weight 65.5 kg Output: Wound Drainage 120 / 120 # 1 Right Knee Hemovac 120 / 120 Other: # Voids 2 4 Date of Last Bowel Movement 07/09/18 # Bowel Movements 1 Narrative: GENERAL: Well-developed, well-nourished in no distress SKIN: Warm and dry. CARDIOVASCULAR: Regular rate and rhythm. RESPIRATORY: No accessory muscle use. Clear to auscultation. Breath sounds equal bilaterally. GASTROINTESTINAL: Abdomen soft, non-tender, nondistended. MUSCULOSKELETAL: Right lower extremity with dry thick bandage NEUROLOGICAL: Awake and alert. No obvious cranial nerve deficits. Motor grossly within normal limits. Five out of 5 muscle strength in the arms and legs. Normal speech. - Urinary Catheter Management Straight Cath placed during this visit: yes, but has since been removed by the nurse Reason for continuing: Not indwelling catheter Insertion date: 07/07/18 Removal date: 07/07/18 Removal time: 10:55 Results - Labs CBC & Chem 7: 07/09/18 05:46 07/08/18 05:30 Laboratory Results - last 24 hr 07/09/18 05:46 Hgb 11.2 L Hct 32.7 L - Procedures Right total knee arthroplasty using [place] Triathlon prosthesis (uncemented) on 07/07/2018 Assessment and Plan - Plan This is a 78-year-old female with a history of seasonal allergies, hyperglycemia and right knee pain from osteoarthritis. She underwent elective arthroplasty by Dr. NURY Correa who requested consultation to evaluate and manage multiple medical conditions. Right knee osteoarthritis status post arthroplasty. Stable continue postoperative care with physical therapy, wound care, DVT prophylaxis with aspirin and SCD and pain management with Lortab. Counseled regarding narcotics. Incentive spirometry. Hyperglycemia 170. Fasting glucose 106 Microscopic hematuria RBC of 8. No UTI symptoms. Outpatient follow-up Anemia secondary to acute blood loss. Hemodynamically stable. Hemoglobin up to 11.2 continue to monitor Discharge Planning: Patient medically stable for discharge. Will sign off
== END 2018-07-09 10:36 | disposition home health service (06) ==
LOC: HSDI 05:17 → N06 11:22
PROVIDERS: ADMIT Orthopaedic Surgery; ATTEND Orthopaedic Surgery